=== PATIENT | female | born 1990 | race Caucasian/White ===

== ENCOUNTER → 2023-04-18 16:46 | Outpatient (REF) | payer BC, SELFPAY | LOC: PNTC 16:46 | PROVIDERS: ATTENDING PHYSICIAN Obstetrics & Gynecology | DX: Z36.0 Encounter for antenatal screening for chromosomal anomalies (principal); Z36.82 Encounter for antenatal screening for nuchal translucency | CPT/HCPCS: 76801; 76813 ==

== ENCOUNTER → 2023-06-10 16:26 | Outpatient (REF) | payer BC, SELFPAY | LOC: PNTC 16:26 | PROVIDERS: ATTENDING PHYSICIAN Obstetrics & Gynecology | DX: Z34.82 Encounter for supervision of other normal pregnancy, second trimester (principal) | CPT/HCPCS: 76805 ==

== ENCOUNTER 2023-10-23 04:05 | Inpatient (IN) | payer BC, SELFPAY ==
[2023-10-23 04:15] VITALS: BMI 24.4
[2023-10-23 04:20] VITALS: BP 127/67
[2023-10-23] MEDS: LR 1000 IV ×2 (04:30→05:59)
[2023-10-23 04:53] LABS: % Basophils 0.3 % (0-2); % Eosinophils 1.2 % (0-6); % Immature Granulocytes 0.5 % (0-0.5); % Lymphocytes 18.5 % (20.5-51.1); % Monocytes 6.9 % (1.7-9.3); % Neutrophils 72.6 % (42.2-75.2); Absolute Eosinophils 0.1 10^3/uL (0-0.7); Absolute Immature Granulocytes 0.1 10^3/uL (0-0.05); Absolute Lymphocytes 1.8 10^3/uL (1.2-3.4); Absolute Monocytes 0.7 10^3/uL (0.1-0.6); Absolute Neutrophils 6.9 10^3/uL (1.4-6.5); Hematocrit 28.3 % (37.0-47.0); Hemoglobin 10.4 g/dL (12.0-16.0); Mean Corp Hgb Conc. 36.7 g/dL (33.0-37.0); Mean Corpuscular Hgb 32.7 pg (27.0-31.0); Mean Platelet Volume 11.4 fL (7.4-10.4); Nucleated Red Blood Cells % 0 %; Platelet Count 159 10^3/uL (130-400); Red Blood Cell Count 3.18 10^6/uL (4.20-5.40); Red Cell Dist. Width 13.3 % (11.5-14.5); White Blood Cell Count 9.5 10^3/uL (4.8-10.8)
[2023-10-23] MEDS: SUBLIMAZE 100 MCG EPIDURAL (05:21)
[2023-10-23] MEDS: FENTANYL/BUPIVACAINE 100 EPIDURAL (05:25)
[2023-10-23] MEDS: TYLENOL 650 MG PO (20:07)
[2023-10-23] MEDS: MOTRIN 600 MG PO (20:08)
[2023-10-23] MEDS: PRENATAL PLUS 1 TABLET PO (21:37)
[2023-10-24] MEDS: MOTRIN 600 MG PO ×3 (04:26→19:43)
[2023-10-24] MEDS: TYLENOL 650 MG PO ×4 (04:26→19:41)
[2023-10-24 04:57] LABS: Hematocrit 27.4 % (37.0-47.0); Hemoglobin 9.8 g/dL (12.0-16.0)
[2023-10-24] MEDS: SENOKOT-S 1 TABLET PO (08:22)
[2023-10-24] MEDS: PRENATAL PLUS 1 TABLET PO (22:18)
[2023-10-25 11:12] LABS: Syphilis/T. pallidum Ab Reflex Negative (Negative)
== END 2023-10-25 12:38 | disposition home or self-care (01) | DRG 807 ==
LOC: LDRP 04:05
PROVIDERS: Obstetrics & Gynecology; ADMITTING PHYSICIAN Obstetrics & Gynecology; FAMILY PHYSICIAN Internal Medicine
PROC: 10E0XZZ Delivery of Products of Conception, External Approach (ICD-10-PCS; 2023-10-23)
PROC: 10907ZC Drainage of Amniotic Fluid, Therapeutic from Products of Conception, Via Natural or Artificial Opening (ICD-10-PCS; 2023-10-23)
PROC: 0KQM0ZZ Repair Perineum Muscle, Open Approach (ICD-10-PCS; 2023-10-23)
DX: O48.0 Post-term pregnancy (principal); Z37.0 Single live birth; Z3A.40 40 weeks gestation of pregnancy; O70.1 Second degree perineal laceration during delivery; O69.81X0 Labor and delivery complicated by cord around neck, without compression, not applicable or unspecified; G43.909 Migraine, unspecified, not intractable, without status migrainosus; M54.30 Sciatica, unspecified side; O99.02 Anemia complicating childbirth; D64.9 Anemia, unspecified; Z80.3 Family history of malignant neoplasm of breast; Z80.8 Family history of malignant neoplasm of other organs or systems
CPT/HCPCS: 36415; 85014; 85018; 85025; 86780; 86850; 86900; 86901